=== PATIENT | female | born 1960 | race Caucasian/White ===

== ENCOUNTER 2019-10-11 18:28 | Emergency (ER) | payer OTHER, SELFPAY ==
[~2019-10-11 18:28] MED LIST: Iopamidol 370 76% 100 ML VIAL ONE
[2019-10-11 22:27] LABS: #Eosinphils 0.1 thou/uL (0.0-0.7); #Lymphocytes 3.8 thou/uL (1.20-3.40); #Monocytes 0.8 thou/uL (0.11-0.59); #Neutrophils 10.4 thou/uL (1.40-6.50); %Basophils 0.2 % (0.0-1.0); %Eosinophils 0.4 % (0.0-10.0); %Lymphocytes 25.4 % (21.0-51.0); %Monocytes 5.2 % (0.0-10.0); %Neutrophils 68.8 % (42.0-75.0); Hemoglobin 12.7 g/dL (12.0-16.0); Mean Corpuscular HGB CONC 33.9 g/dL (32.0-36.0); Mean Corpuscular Hemoglobin 29.6 pg (27.0-31.0); Mean Corpuscular Volume 87.3 fL (78.0-98.0); Mean Platelet Volume 6.8 fL (7.4-10.4); Platelet Count 409 thou/uL (130-400); RBC Distribution Width 12.2 % (11.5-14.5); Red Blood Cell (RBC) Count 4.31 mill/uL (4.20-5.40); White Blood Cell (WBC) Count 15.1 thou/uL (4.8-10.8)
[2019-10-11 22:48] LABS: ALT (SGPT) 14 U/L (8-55); AST (SGOT) 15 U/L (5-34); Albumin 4.2 g/dL (3.5-5.0); Alkaline Phosphatase 106 U/L (40-110); Anion Gap 10 mmol/L (10-20); BUN (Urea Nitrogen) 13 mg/dL (9.8-20.1); Bilirubin, Total 0.4 mg/dL (0.2-1.2); Calc. Creatinine Clearance 0 mL/min (70-130); Calcium 9.2 mg/dL (7.8-10.44); Carbon Dioxide 29 mmol/L (22-29); Chloride 105 mmol/L (98-107); Estimated GFR-MDRD 71; Globulin 2.4 g/dL (2.4-3.5); Glucose 129 mg/dL (70-105); Potassium 3.7 mmol/L (3.5-5.1); Protein, Total 6.6 g/dL (6.0-8.3); Sodium 140 mmol/L (136-145)
--- NOTE | 2019-10-11 23:37 | RAD ---
PORTABLE CHEST: History: Body pain. FINDINGS: No comparison. Lung siddiqui appear clear. No infiltrate or vascular congestion. Heart and mediastinum unremarkable. IMPRESSION: No acute process identified. POS: OFF
[2019-10-11 23:50] LABS: INR-International Normal Ratio 0.9; Prothrombin Time 12.1 SEC (12.0-14.7)
[2019-10-11] MEDS ORDERED: Morphine 4 MG/ML VIAL ONE (23:52)
[2019-10-11] MEDS ORDERED: Ondansetron PF 4 MG/2 ML Vial ONE (23:52)
[2019-10-12 01:37] LABS: Bilirubin Negative (Negative); Blood, Urine Negative (Negative); Clarity Clear (Clear); Glucose, Urine (Dipstick) Normal (Negative); Leukocyte Negative Leu/uL (Negative); Nitrite Negative (Negative); Protein, Urine (Dipstick) Negative (Neg-Trace); Urobilinogen Normal mg/dL (Less than 2)
[2019-10-12] MEDS ORDERED: Morphine 4 MG/ML VIAL ONE (01:47)
--- NOTE | 2019-10-12 07:39 | CT ---
PRELIMINARY REPORT/[facility]/EMERGENCY AFTER HOURS PROCEDURE EXAM: CT pulmonary angiogram CLINICAL HISTORY: ER 23... F59 presents to ED with c/o R sided pain onset day night that will not go away. Pt repo rts pain begins on R rib area TECHNIQUE: Axial CTA images of the chest with intravenous contrast. MIP reconstructed images were created and re viewed. CONTRAST: With; ISOVUE 370, 55ML COMPARISON: None provided. FINDINGS: PULMONARY ARTERIES: Satisfactory opacification pulmonary artery shows no filling defects to suggest pulmonary embolus. AORTA: No thoracic aortic aneurysm or dissection. LUNGS: The lungs are clear. No pulmonary mass. No focal airspace consolidation. PLEURAL SPACES: No pleural effusion. No pneumothorax. HEART AND MEDIASTINUM: Normal size heart without pericardial thickening or effusion. No significant coronary calcification. No mediastinal or hilar lymphadenopathy. LYMPH NODES: No lymphadenopathy. BONES: No focal osseous abnormality or acute fracture. CHEST WALL AND UPPER ABDOMEN: Limited evaluation of the upper abdomen shows surgical clips in the ga llbladder fossa from prior cholecystectomy, sliding hiatal hernia, and nodular thickening of the right and left adrenal glands which are hypodense with fatty attenuation compatible with myelolipoma. Otherwise, limited evaluation of the upper abdomen is unremarkable. IMPRESSION: No evidence for pulmonary embolus. ELECTRONICALLY SIGNED BY: Larry Gamboa D.O. Oct 12, 2019 12:32:39 AM [employer] TECH[employer]IST This report is intended for review by the ordering physician only, in accordance of law. If you recei ve this report in error, please call [facility] at [phone]. FINAL REPORT Exam: CT angiogram of the chest HISTORY: Chest pain COMPARISON: None TECHNIQUE: CT angiogram of the chest is performed in the axial plane. Three-dimensional reformatted i mages are submitted for interpretation FINDINGS: Mediastinum: No mass, lymphadenopathy or hematoma. HEART: Normal size. No significant pericardial fluid. Aorta: No aneurysm or dissection Upper solid abdominal viscera: No acute abnormality enhancement. Surgically absent gallbladder with p robable bilateral adrenal adenomas. Incidental hiatal hernia. Trachea and central bronchi: Patent Pleural spaces: No effusion Lung parenchyma: No masses or consolidation. Pneumothorax: None Osseous structures: No lytic or blastic lesions Pulmonary arteries: Adequate contrast opacification pulmonary arterial system to the level of segment al arteries. No filling defect to suggest pulmonary embolism IMPRESSION:This report is in agreement with the initial report by [facility]. No evidence of pu lmonary artery embolism to the level of segmental arteries. Transcribed Date/Time: 10/12/2019 7:52 AM
== END 2019-10-12 02:10 | disposition home or self-care (01) ==
LOC: ERS 18:28
DX: R07.89 Other chest pain (principal); G62.9 Polyneuropathy, unspecified; Z79.899 Other long term (current) drug therapy
CPT/HCPCS: 36415; 71045; 71275; 80053; 81003; 83690; 84484; 85025; 85610; 93005; 96361; 96374; 96375; 96376; J2270; J2405; Q9967